=== PATIENT | male | born 1970 | race Caucasian/White ===

== ENCOUNTER 2017-04-15 09:11 | Emergency (ER) | payer BC ==
[2017-04-15 09:31] VITALS: BP 122/78
--- NOTE | 2017-04-15 10:31 | UC ---
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 states he has felt hot, but has not taken his temperature. " Denies fever. no wheezing. used albuterol Q 4hrs last wk w/o any relief. no sinus pain. no ST. no relief w/ mucinex OTC. biggest concern is cough and coughing fits. - History of Current Complaint Chief Complaint: UCGeneralIllness Stated Complaint: UPPER RESP. Time Seen by Provider: 04/15/17 09:44 - Allergies/Home Medications Allergies/Adverse Reactions: Allergies Allergy/AdvReac Type Severity Reaction Status Date / Time No Known Allergies Allergy Verified 04/15/17 09:22 Home Medications: Home Medications PARoxetine HCL TAB* [Paxil TAB*] 20 mg PO DAILY 04/15/17 [History Confirmed ] PMH/Surg Hx/FS Hx/Imm Hx Previously Healthy: Yes Psychological History: Anxiety, Depression - Surgical History Surgical History: None - Family History Known Family History: Negative: Respiratory Disease - no asthma FHx - Social History Alcohol Use: Rare Substance Use Type: None Smoking Status (MU): Never Smoked Tobacco - Immunization History Most Recent Influenza Vaccination: has not had this year Review of Systems Constitutional: Negative Skin: Negative Eyes: Negative ENT: Negative Respiratory: Cough Cardiovascular: Negative Gastrointestinal: Negative Genitourinary: Negative Motor: Negative Neurovascular: Negative Musculoskeletal: Negative Neurological: Negative Psychological: Negative Is Patient Immunocompromised?: No All Other Systems Reviewed And Are Negative: Yes Physical Exam Triage Information Reviewed: Yes Appearance: Well-Appearing, No Pain Distress Vital Signs: Initial Vital Signs Temp 98.0 F 04/15/17 09:17 Pulse 66 04/15/17 09:17 Resp 18 04/15/17 09:17 BP 122/78 04/15/17 09:17 Pulse Ox 99 04/15/17 09:17 Vital Signs Reviewed: Yes Eye Exam: Normal Eyes: Positive: Conjunctiva Clear ENT: Positive: Pharyngeal erythema - +PND, Nasal congestion, TMs normal. Negative: Hoarse voice, Sinus tenderness Neck exam: Normal Neck: Positive: Supple, Nontender, No Lymphadenopathy Respiratory: Positive: Lungs clear, No accessory muscle use, Decreased breath sounds. Negative: Crackles, Rhonchi, Stridor, Wheezing Cardiovascular Exam: Normal Cardiovascular: Positive: RRR, No Murmur Abdomen Description: Positive: Nontender, Soft Musculoskeletal Exam: Normal Neurological Exam: Normal Psychological Exam: Normal Skin Exam: Normal UC Diagnostic Evaluation - Laboratory O2 Sat by Pulse Oximetry: 99 Respiratory Course/Dx - Course Course Of Treatment: no relief with albuterol. -disc prednisone and he is agreeable. disc SEs in detail. cont w/ alb. tessalon helio. -no evidence of bacterial infection at this time. - Differential Dx/Diagnosis Differential Diagnosis/HQI/PQRI: Asthma, Bronchitis, Lower Resp Infection, Sinusitis Provider Diagnoses: Bronchitis Discharge - Discharge Plan Condition: Stable Disposition: HOME Prescriptions: Benzonatate CAP* [Tessalon 100 MG CAP*] 100 mg PO TID PRN #30 cap PRN Reason: Cough Methylprednisolone [Medrol Dosepak 4 MG*] 4 mg PO DAILY #1 devonte Patient Education Materials: Acute Bronchitis (ED) Referrals: Dragan Sandoval MD [Primary Care Provider] - 5 Days Additional Instructions: -We discussed risks of prednisone including but not limited to anxiety, agitation, insomnia, GI upset, elevated blood pressures and blood sugar readings , adrenal crisis and avascular necrosis of the hip. -You should continue using the albuterol. -There is no evidence of any bacterial infection at this time, but you should certainly be re-evaluated if your symptoms worsen or persist.
--- OUTSIDE RECORDS SUMMARY | 2017-04-17 10:02 | XMS REPORT ---
:1970 External Reference #:[id number] Author Organization [facility] Address [address] [address] Phone [phone] Care Team Providers Name Role Phone Dragan Sandoval MD Care Team Information Wood Miller Unavailable Payers Type Date Identification Numbers Payment Provider Subscriber Commercial Effective: Policy Number: [id number] [facility] Commercial Monday Antony 2013 PayID: [id number] [address] [address] [place] [address] Problems Date Description Provider Status Onset: 05/27/2013 History of malignant neoplasm of Dragan Sandoval MD Active skin Onset: 05/02/2012 Migraine with typical aura Dragan Sandoval MD Active Onset: 09/04/2009 Carcinoma in situ of skin of face Dragan Sandoval MD Active Onset: 09/04/2009 Disorder of lipid metabolism Dragan Sandoval MD Active Onset: 09/04/2009 Obesity Dragan Sandoval MD Active Onset: 03/04/2009 Mild recurrent major depression Dragan Sandoval MD Active Onset: 10/08/2008 Hematuria syndrome Cheryl Cantrell PA Active Onset: 04/26/2005 Anxiety state Active Onset: 03/30/2015 Moderate recurrent major depression Dragan Sandoval MD Active Family History Date Family Member(s) Problem(s) Comments General IN General Hypertension Social History Type Date Description Comments Education Higest level completed, Bachelor's Patient is . Lives with Degree son and daughter. 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 Patient is right-handed. Hobbies Golfing Hobbies Bowling Hobbies Hunting ETOH Use Occasionally consumes alcohol Always uses a car seat. Smoking Patient has never smoked Allergies, Adverse Reactions, Alerts Date Description Reaction Status Severity Comments 01/12/2015 NKDA active Medications Medication Date Status Form Strength Qnty SIG Indications Ordering Provider Proair HFA Active Aerosol 108(90Base) 8.500gm 2 puffs R05 Saxena , 017 mcg/Act every 4-6 Jose, hours as DO needed for cough, sob, wheezing Paroxetine Active Tablets 40mg 90tabs take 1 F33.0 Digiovanna HCL 015 tablet at , Dragan, bedtime F33.1 Clonazepam 12/06/2011 Active Tablets 0.5mg 20tabs 1 by mouth F41.9 Digiovanna, twice a MD Dragan day as needed anxiety Omeprazole 01/12/2015 - Hx Capsules 20mg 30caps 1 by mouth K21.9 Digiovanna, 09/08/2015 DR tima Archibald MD morming Paroxetine 01/11/2010 - Hx Tablets 20mg 90tabs 1 by mouth F33.0 Digiovanna, HCL 03/30/2015 tima Archibald MD night at bedtime, or as directed F33.1 Immunizations CPT Code Status Date Vaccine Lot # [id number] Given 03/29/2010 Afluria Or Fluvirin Flu Vac Intramuscular 00428 Given 03/24/2003 Afluria Or Fluvirin Flu Vac Intramuscular Vital Signs Date Vital Result Comment 04/06/2017 Body Temperature 96.6 F Weight 235.00 lb Heart Rate 76 /min BP Systolic 122 mmHg BP Diastolic 76 mmHg Respiratory Rate 18 /min Height 70 inches 5'10"04/06/17 BMI (Body Mass Index) 33.7 kg/m2 09/01/2016 Weight 238.00 lb Heart Rate 74 /min BP Systolic 120 mmHg BP Diastolic 70 mmHg Respiratory Rate 18 /min Height 70 inches 5'10" BMI (Body Mass Index) 34.1 kg/m2 01/11/2016 Weight 233.00 lb Heart Rate 74 /min BP Systolic 120 mmHg BP Diastolic 80 mmHg Respiratory Rate 18 /min Height 70 inches 5'10" BMI (Body Mass Index) 33.4 kg/m2 09/08/2015 Weight 228.00 lb Heart Rate 74 /min BP Systolic 120 mmHg BP Diastolic 80 mmHg Respiratory Rate 18 /min Height 70 inches 5'10" BMI (Body Mass Index) 32.7 kg/m2 04/27/2015 Weight 220.00 lb Heart Rate 74 /min BP Systolic 130 mmHg BP Diastolic 72 mmHg Respiratory Rate 18 /min 03/30/2015 Weight 220.25 lb Heart Rate 72 /min BP Systolic 122 mmHg BP Diastolic 80 mmHg Respiratory Rate 18 /min 01/12/2015 Weight 213.00 lb Heart Rate 64 /min BP Systolic 128 mmHg L/Reg BP Diastolic 78 mmHg L/Reg Respiratory Rate 17 /min Height 70 inches 5'10" BMI (Body Mass Index) 30.6 kg/m2 04/22/2014 BP Systolic 118 mmHg L at rest BP Diastolic 74 mmHg L at rest 04/22/2014 Weight 209.00 lb Down 20# Heart Rate 68 /min BP Systolic 134 mmHg L/Reg BP Diastolic 78 mmHg L/Reg Height 70.1 inches 5'10.10" 6-201310/21/2013 Weight 229.00 lb Same Heart Rate 74 /min BP Systolic 118 mmHg L/Reg BP Diastolic 78 mmHg L/Reg Respiratory Rate 17 /min Height 70.1 inches 5'10.10" 05/27/2013 Weight 229.00 lb Heart Rate 82 /min BP Systolic 122 mmHg L/LG BP Diastolic 76 mmHg L/LG Respiratory Rate 19 /min Height 70.1 inches 5'10.10" 09/21/2012 Weight 231.00 lb up 1# Heart Rate 74 /min BP Systolic 122 mmHg L/LG BP Diastolic 86 mmHg L/LG Respiratory Rate 17 /min Height 70 inches 5'10" 05/02/2012 Weight 230.56 lb Heart Rate 66 /min BP Systolic 112 mmHg BP Diastolic 80 mmHg Respiratory Rate 18 /min 12/06/2011 Weight 216.00 lb Heart Rate 88 /min BP Systolic 116 mmHg BP Diastolic 80 mmHg Respiratory Rate 16 /min Height 70 inches 5'10" 8-201109/30/2011 Weight 219.00 lb Heart Rate 74 /min BP Systolic 126 mmHg BP Diastolic 76 mmHg Respiratory Rate 18 /min Height 70 inches 5'10" 5-201003/16/2011 Weight 215.00 lb Up 7# Heart Rate 74 /min BP Systolic 118 mmHg L/LG BP Diastolic 78 mmHg L/LG Respiratory Rate 17 /min Height 70 inches 5'10" 09/10/2010 Weight 208.31 lb Down 14# Heart Rate 64 /min BP Systolic 132 mmHg L/LG BP Diastolic 78 mmHg L/LG Respiratory Rate 17 /min Height 70 inches 5'10" 03/29/2010 Weight 222.00 lb Heart Rate 80 /min BP Systolic 116 mmHg BP Diastolic 80 mmHg 09/04/2009 Weight 242.00 lb Up 14# Heart Rate 80 /min BP Systolic 114 mmHg L/LG BP Diastolic 78 mmHg L/LG Respiratory Rate 12 /min 03/04/2009 Weight 228.00 lb Down 4# Heart Rate 64 /min BP Systolic 114 mmHg L/LG BP Diastolic 82 mmHg L/LG Respiratory Rate 11 /min 09/09/2008 Weight 232.00 lb Heart Rate 84 /min BP Systolic 134 mmHg BP Diastolic 84 mmHg 08/19/2008 Body Temperature 97.3 F Weight 234.00 lb Heart Rate 80 /min BP Systolic 112 mmHg BP Diastolic 78 mmHg Respiratory Rate 15 /min O2 % BldC Oximetry 98 % 07/08/2008 Body Temperature 96.3 F Weight 231.00 lb Heart Rate 75 /min BP Systolic 112 mmHg BP Diastolic 80 mmHg Respiratory Rate 15 /min 01/02/2008 Body Temperature 97.4 F Weight 223.00 lb Heart Rate 67 /min BP Systolic 134 mmHg BP Diastolic 92 mmHg Respiratory Rate 17 /min Height 70 inches 5'10" 07/03/2007 Body Temperature 97.5 F Weight 226.00 lb Heart Rate 70 /min BP Systolic 124 mmHg BP Diastolic 80 mmHg Respiratory Rate 18 /min Height 70 inches 5'10" 06/23/2007 Weight 229.00 lb Heart Rate 76 /min BP Systolic 122 mmHg BP Diastolic 84 mmHg Respiratory Rate 18 /min Height 70 inches 5'10" O2 % BldC Oximetry 97 % 02/16/2007 Weight 242.00 lb Heart Rate 73 /min BP Systolic 114 mmHg BP Diastolic 78 mmHg Respiratory Rate 17 /min Height 70 inches 5'10" 01/27/2006 Body Temperature 97.1 F Weight 236.56 lb Down 3# Heart Rate 74 /min BP Systolic 118 mmHg L/LG BP Diastolic 76 mmHg L/LG Respiratory Rate 16 /min Height 70 inches 5'10" 01/03/2006 Body Temperature 97.3 F Weight 239.00 lb Heart Rate 84 /min BP Systolic 104 mmHg BP Diastolic 76 mmHg Respiratory Rate 16 /min 04/26/2005 Body Temperature 97.0 F Weight 245.00 lb Heart Rate 76 /min BP Systolic 114 mmHg BP Diastolic 74 mmHg Respiratory Rate 14 /min Results Test Date Test Result H/L Range Note Laboratory test finding 09/01/2016 Cholesterol 156 mg/dL 50-199 HDL 35 mg/dL 29-71 1 TSH 4.88 uIU/mL 0.35-4.94 Basic (BMP) 09/01/2016 Sodium 143 mmol/L 135-146 2 Potassium 4.2 mmol/L 3.5-5.2 Chloride# 109 mmol/L 97-110 3 Carbon Dioxide 27 mmol/L 24-34 Glucose 89 mg/dL 70-105 BUN 15 mg/dL 6-26 Creatinine 0.8 mg/dL 0.5-1.4 Calcium 9.0 mg/dL 8.5-10.2 Non Rebecca Egfr >60 >60 4 Rebecca Egfr >60 >60 5 Anion Gap 11 mmol/L 7-16 6 Occult Blood,Stool 09/05/2015 Stool Occult Blood-Single Spec NEGATIVE Negative Smear For WBC'S 09/05/2015 Smear For WBC'S NONE SEEN Smear Source: STOOL Urinalysis With Microscopic 09/05/2015 Urine Color YELLOW Yellow Urine Clarity CLEAR Clear Urine Glucose - Dipstick NEGATIVE mg/dL Negative Urine Bilirubin - Dipstick SMALL High Negative Urine Ketone TRACE mg/dL High Negative Urine Specific [place] >=1.030 1.010-1.030 Urine Blood SMALL High Negative Urine PH 5.5 Low 6.5-7.5 Urine Protein - Dipstick 100 mg/dL High Negative Urine Urobilinogen - Dipstick 0.2 E.U./dL 0.2-1.0 Urine Nitrite - Dipstick NEGATIVE Negative Urine Leuk Esterase NEGATIVE Negative Urine RBC 2-5 rbc/hpf 0-2 Urine WBC 0-2 wbc/hpf 0-7 Urine Epithelial Cells VERY FEW NONESEEN/lpf Urine Bacteria FEW NONESEEN Urine Mucus MODERATE NONESEEN Urine Screen 09/05/2015 Ua RFX Micro + Culture II See Note 7 Stool Culture 09/05/2015 Stool Culture See Note 8 Shiga Toxin 1 Antigen See Note 9 Shiga Toxin 2 Antigen See Note 10 O&P Exam 09/05/2015 Cryptosporidium Specific Ag See Note 11 Giardia Specific Antigen See Note 12 Comprehensive Metabolic Panel 09/05/2015 Glucose 105 mg/dL 74-106 BUN 13 mg/dL 7-18 Creatinine 0.9 mg/dL 0.6-1.3 Glom Filtration Rate, Estimate >60 mL/min >60 If >60 mL/min >60 13 BUN/Creat 14.4 ratio Sodium 141 mmol/L 136-145 Potassium 3.7 mmol/L 3.5-5.1 Chloride 110 mmol/L High 98-107 Carbon Dioxide 22 mmol/L 21-32 Anion Gap 9 mEq/L 8-16 Calcium 8.3 mg/dL Low 8.5-10.1 Total Protein 7.6 g/dL 6.4-8.2 Albumin 3.4 g/dL 3.4-5.0 Globulin 4.2 g/dL 1.9-4.3 Alb/Glob 0.8 ratio Bilirubin,Total 0.5 mg/dL 0.2-1.0 Sgot/Ast 23 U/L 15-37 SGPT/Alt 59 U/L 12-78 Alkaline Phosphatase 123 U/L High 45-117 Laboratory test finding 09/05/2015 Lipase 122 U/L 73-393 CBC W/Automated Diff 09/05/2015 White Blood Count 5.8 K/uL 3.4-10.5 Red Blood Count 5.17 M/uL 4.20-5.80 Hemoglobin 15.9 gm/dL 12.8-17.0 Hematocrit 45.9 % 38.0-48.0 Mean Cell Volume 88.8 fl 80.0-96.0 Mean Corpuscular HGB 30.8 pg 27.0-33.0 Mean Corpuscular HGB Conc 34.6 g/dL 31.7-36.0 Platelet Count 296 K/uL 150-400 Red Cell Distri Width SD 42.4 fl 36-51 Red Cell Distri Width %CV 13.2 % 11.6-15.8 Mean Platelet Volume 9.5 fL 6.6-10.6 Neut% 61.7 % 33.0-73.0 Lymph % 21.0 % 17.0-56.0 [place] % 14.3 % High 0.0-10.0 Eo% 1.4 % 0.0-5.0 Bas% 1.6 % High 0.1-1.0 Neut# 3.58 K/uL 1.8-7.0 Lymph # 1.22 K/uL Low 1.8-7.0 [place] # 0.83 K/uL High 0.0-0.8 Eos # 0.08 K/uL 0.0-0.5 Baso # 0.09 K/uL Low 0.1-0.2 Laboratory test finding 04/22/2014 Anion Gap 8 mEq/L 8-16 BUN 16 mg/dL 7-18 BUN/Creat 14.5 ratio Calcium 8.4 mg/dL Low 8.5-10.1 Carbon Dioxide 30 mmol/L 21-32 Chloride 109 mmol/L High 98-107 Creatinine 1.1 mg/dL 0.6-1.3 Glom Filtration Rate, Estimate >60 mL/min >60 Glucose 89 mg/dL 74-106 If >60 mL/min >60 14 Potassium 4.2 mmol/L 3.5-5.1 SGPT/Alt 46 U/L 12-78 15 Sgot/Ast 25 U/L 15-37 16 Sodium 143 mmol/L 136-145 LDL Cholesterol Profile 04/22/2014 Cholesterol 136 mg/dL < 200 17 HDL Cholesterol 32 mg/dL > 40 18 LDL-Cholesterol 95 mg/dL < 100 19 Triglycerides 47 mg/dL < 150 20 Laboratory test finding 10/21/2013 Comment See Note . 21 TSH 3.03 uIU/ml 0.50-6.00 Testosterone,Serum 518 ng/dL 348-1197 22 Lipid Panel 10/21/2013 Chol/HDL Ratio 5.3 ratio Cholesterol 155.0 mg/dL 50.0-199.0 HDL 29.0 mg/dL 29.0-67.0 LDL, Calculated 111.8 mg/dL 20.0-129.0 Triglycerides 71.0 mg/dL 30.0-249.0 vLDL 14.2 ng/dL Lipid Panel 05/27/2013 Chol/HDL Ratio 4.7 ratio Cholesterol 147.0 mg/dL 50.0-199.0 HDL 31.0 mg/dL 29.0-67.0 LDL, Calculated 99.0 mg/dL 20.0-129.0 Triglycerides 85.0 mg/dL 30.0-249.0 vLDL 17.0 ng/dL 1 Per NCEP ATP III Guidelines: Results lower than 40 mg/dL are suggestive of increased risk for coronary artery disease. Results > or=to 60 mg/dL are considered a negative risk factor. 2 Updated reference range on new analyzer 3 Updated reference range on new analyzer 4 Concerning GFR Guidelines: Normal function or mild renal disease, if clinically at risk: >/=60 mL/min Moderately decreased: 30-59 Severely decreased: 15-29 Renal failure: <15 Glomerular Filtration Rate (GFR) is estimated based on the MDRD equation, which assumes a steady state for creatinine as recommended by the National Kidney Disease Education Program in conjunction with the National Institutes of Health and the National Kidney Foundation. Clinical conditions in which it may be necessary to measure GFR by using clearance methods include extremes of age and body size, severe malnutrition or obesity, diseases of skeletal muscle, paraplegia or quadriplegia, vegetarian diet, rapidly changing kidney function, and calculation of the dose of potentially toxic drugs that are excreted by the kidneys. 5 Concerning GFR Guidelines for Americans: Normal function or mild renal disease, if clinically at risk: >/=60 mL/min Moderately decreased: 30-59 Severely decreased: 15-29 Renal failure: <15 6 Updated reference range on new analyzer 7 09/05/15 [email or web address] Deleted by [facility] Organism 1 ! NO ENTERIC PATHOGENS ISOLATED . ! ................................................... NOTE: ! INCLUDES TESTING FOR SALMONELLA, SHIGELLA, AEROMONAS, . ! PLESIOMONAS, CAMPYLOBACTER, AND E. COLI 0157:H7 . ! ................................................... . ! YERSINIA AND VIBRIO ARE NOT ROUTINELY SCREENED FOR AND . ! SHOULD BE REQUESTED SEPARATELY 9 SHIGA TOXIN 1 NOT DETECTED 10 SHIGA TOXIN 2 NOT DETECTED 11 NEGATIVE FOR CRYPTOSPORIDIUM SPECIFIC ANTIGEN 12 NEGATIVE FOR GIARDIA SPECIFIC ANTIGEN. The specimen will be held for 5 days. Additional testing may be performed upon request if the antigen tests are negative, and the patient is still symptomatic or has traveled to an endemic region. 13 Note: Persistent reduction for 3 months or more in an eGFR <60 mL/min/1.73 m2 defines CKD. Patients with eGFR values >/=60 mL/min/1.73 m2 may also have CKD if evidence of persistent proteinuria is present. The original MDRD equation for estimated GFR is not valid for patients less than 18 years of age. Additional information may be found at www.kdoqi.org. 14 Note: Persistent reduction for 3 months or more in an eGFR <60 mL/min/ 1.73 m2 defines CKD. Patients with eGFR values >/=60 mL/min/1.73 m2 may also have CKD if evidence of persistent proteinuria is present. The original MDRD equation for estimated GFR is not valid for patients less than 18 years of age. Additional information may be found at www.kdoqi.org. 15 FASTING 16 FASTING 17 Reference Guidelines*: Desirable: ........... < 200 mg/dL Borderline High: ..... 200-239 mg/dL High: ................ >=240 mg/dL * The National Cholesterol Education Program (NCEP) 18 Reference Guidelines*: Low HDL: ..... < 40 mg/dL Normal: ..... 40-60 mg/ dL Desirable: ... > 60 mg/dL *The National Cholesterol Education Program(NCEP ) 19 Reference Guidelines*: Optimal:........... <100 mg/dL Near Optimal....... 100-129 mg/dL Borderline High.... 130-159 mg/dL High............... 160-189 mg/dL Very High.......... >=190 mg/dL * Source: National Cholesterol Education Program (NCEP) 20 Reference Guidelines*: Normal: ............. < 150 mg/dL Borderline High : .... 150-199 mg/dL High: ............... 200-499 mg/dL Very High: .......... > 500 mg/dL * Source: National Cholesterol Education Program (NCEP) 21 Adult male reference interval is based on a population of lean males up to 40 years old. Performed at: RN - [facility] [address] [id number] Blocking Machine Tender: Francisca Lazo MD, Phone: [phone] 22 FASTING Procedures Description No Information Encounters Type Date Location Provider CPT E/M Dx Office Visit 09/01/2016 9:00a [facility] [place] [address] F41.1 F33.1 E66.9 Z85.828 E78.9 Office Visit 01/11/2016 9:30a [facility] [place] [address] F33.1 Z85.828 E66.9 Office Visit 09/08/2015 9:30a [facility] [place] [address] [id number] A09 F33.1 F41.1 Z85.828 Office Visit 04/27/2015 3:30p [facility] [place] [address] F33.1 Office Visit 03/30/2015 2:00p [facility] [place] [address] F33.1 F41.1 K21.9 Office Visit 01/12/2015 8:00a [facility] [place] [address] 272.9 278.00 296.31 V10.83 346.00 530.81 300.00 Plan of Care 04/06/2017 - Sandy Jara PAR05 CoughNew Medication:Proair HFA 108(90 Base) mcg/ActComments:Suspect viralContinue supportive careCall if symptoms worsen or persistFollow up:Prn
== END 2017-04-15 10:42 | disposition home or self-care (01) ==
LOC: UCCORT 09:11
DX: J40 Bronchitis, not specified as acute or chronic (principal)
CPT/HCPCS: 99202; G0463

== ENCOUNTER 2018-09-04 07:34 | Emergency (ER) | payer BC ==
--- OUTSIDE RECORDS SUMMARY | 2018-09-04 07:49 | XMS REPORT | Continuity of Care Document ---
:1970 External Reference #:[id number] Author Name Macy Sandoval, SHAHAB Address [address] [place] [address] Care Team Providers Name Role Phone Dragan Sandoval MD Care Team Information [employer] Farm[employer] Unavailable Payers Date Identification Numbers Payment Provider Subscriber Effective: 2013 Policy Number: [id number] [facility] Commercial Monday Antony PayID: [id number] [address] [address] [place] [address] Advance Directives Description No Information Available Problems Active Problems Provider Date History of malignant neoplasm of skin Dragan Sandoval MD Onset: 2013 Migraine with typical aura Dragan Sandoval MD Onset: 05/02/2012 Carcinoma in situ of skin of face Dragan Sandoval MD Onset: 09/04/2009 Disorder of lipid metabolism Dragan Sandoval MD Onset: 09/04/2009 Obesity Dragan Sandoval MD Onset: 09/04/2009 Mild recurrent major depression Dragan Sandoval MD Onset: 03/04/2009 Hematuria syndrome Cheryl Cantrell PA Onset: 10/08/2008 Anxiety state Onset: 04/26/2005 Moderate recurrent major depression Dragan Sandoval MD Onset: 03/30/2015 Family History Date Family Member(s) Observation Comments General OK General Hypertension Social History Type Date Description Comments Sex Unknown Education Higest level completed, Patient is . Bachelor's Degree Lives with son and daughter. 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 Patient is right-handed. Hobbies [employer] Hobbies Neofonieling Hobbies Hunting ETOH Use Occasionally consumes Always uses a car seat. alcohol Tobacco Use Start: Unknown Patient has never smoked Smoking Status Reviewed: 08/20/18 Patient has never smoked Allergies, Adverse Reactions, Alerts Description No Known Drug Allergies Medications Active Medications SIG Qnty Indications Ordering Date Provider Cyclobenzaprine HCL take 1 tablet by 30tabs S39.012A Digiovanna, 2018 10mg mouth every 8 Macy, FISH CHECKER Tablets hours as needed for pain Ketoconazole apply twice a 15gm R21 Digiovanna, 07/21/2017 2% Cream day to rash as MD Dragan directed Paroxetine HCL take 1 tablet at 90tabs F33.0 Eulalioiovancaio, 03/30/2015 40mg Tablets bedtime MD Dragan F33.1 Clonazepam 1 by mouth twice a 20tabs F41.9 Dragan Sandoval, 12/06/2011 0.5mg day as needed Tablets anxiety F41.1 Ibuprofen 1-2 by mouth every 6 hours Unknown 200mg Tablets with food or snack as needed pain History Medications Levofloxacin 1 by mouth every 7tabs R05 Eulalioiopal, 04/28/2017 - 500mg day for 7 days MD Dragan 05/05/2017 Tablets Prednisone 1 pill by mouth 10tabs R05 Digiopal, 04/28/2017 - 20mg twice a day with MD Dragan 05/03/2017 Tablets food for 5 days Azithromycin 2 tablets by 6tabs R0Jose Alexander, DO 04/26/2017 - 250mg mouth on day 1 04/28/2017 Tablets then 1 tablet on days 2-5 Guaifenesin-Codeine 10ml by mouth q4 480ml Jose العراقي, DO 2016 - hours as needed 05/02/2017 100-10mg/5ML Syrup for cough Proair HFA 2 puffs every 8.500gm Jose العراقي, DO 04/06/2017 - 4-6 hours as 07/21/2017 108(90Base) mcg/Act needed for Aerosol cough, sob, wheezing Omeprazole 1 by mouth every 30caps K21.9 Digiovancaio, 01/12/2015 - 20mg linda Archibald MD 09/08/2015 Capsules Paroxetine HCL 1 by mouth every 90tabs F33.0 Digiovanna, 01/11/2010 - 20mg night at MD Dragan 03/30/2015 Tablets bedtime, or as directed F33.1 Immunizations CPT Code Status Date Vaccine Reaction Lot # [id number] Given 02/23/2018 Flu Vaccine NOS Pt says he got a flu shot in Jan 2018 at work. 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 Given 07/21/2017 Tetanus And Diptheria [id number] Toxoids For Adult Use-preservative free 54876 Given 03/29/2010 Afluria Or Fluvirin Flu Vac Intramuscular 80485 Given 03/24/2003 Afluria Or Fluvirin Flu Vac Intramuscular Vital Signs Date Vital Result Comment 08/20/2018 10:36am Weight 233.44 lb Heart Rate 80 /min BP Systolic 114 mmHg BP Diastolic 74 mmHg Respiratory Rate 16 /min Height 70.5 inches 5'10.50" BMI (Body Mass Index) 33.0 kg/m2 07/27/2018 8:04am Weight 232.00 lb Heart Rate 72 /min BP Systolic 112 mmHg BP Diastolic 78 mmHg Respiratory Rate 18 /min Height 70.5 inches 5'10.50" BMI (Body Mass Index) 32.8 kg/m2 01/26/2018 7:59am Weight 234.25 lb Heart Rate 70 /min BP Systolic 130 mmHg BP Diastolic 78 mmHg Respiratory Rate 18 /min Height 70.5 inches 5'10.50" BMI (Body Mass Index) 33.1 kg/m2 07/21/2017 7:56am Weight 234.00 lb Heart Rate 78 /min BP Systolic 120 mmHg BP Diastolic 70 mmHg Respiratory Rate 18 /min Height 70 inches 5'10" BMI (Body Mass Index) 33.6 kg/m2 04/28/2017 4:25pm Body Temperature 98.2 F Weight 235.00 lb Heart Rate 84 /min BP Systolic 122 mmHg BP Diastolic 80 mmHg Respiratory Rate 18 /min Height 70 inches 5'10"04/06/17 O2 % BldC Oximetry 97 % Ra BMI (Body Mass Index) 33.7 kg/m2 04/26/2017 2:06pm Body Temperature 99.1 F Weight 239.00 lb Heart Rate 96 /min BP Systolic 132 mmHg BP Diastolic 80 mmHg Respiratory Rate 20 /min Height 70 inches 5'10"04/06/17 O2 % BldC Oximetry 9495 % BMI (Body Mass Index) 34.3 kg/m2 04/06/2017 1:51pm Body Temperature 96.6 F Weight 235.00 lb Heart Rate 76 /min BP Systolic 122 mmHg BP Diastolic 76 mmHg Respiratory Rate 18 /min Height 70 inches 5'10"04/06/17 BMI (Body Mass Index) 33.7 kg/m2 09/01/2016 8:51am Weight 238.00 lb Heart Rate 74 /min BP Systolic 120 mmHg BP Diastolic 70 mmHg Respiratory Rate 18 /min Height 70 inches 5'10" BMI (Body Mass Index) 34.1 kg/m2 01/11/2016 9:31am Weight 233.00 lb Heart Rate 74 /min BP Systolic 120 mmHg BP Diastolic 80 mmHg Respiratory Rate 18 /min Height 70 inches 5'10" BMI (Body Mass Index) 33.4 kg/m2 09/08/2015 9:08am Weight 228.00 lb Heart Rate 74 /min BP Systolic 120 mmHg BP Diastolic 80 mmHg Respiratory Rate 18 /min Height 70 inches 5'10" BMI (Body Mass Index) 32.7 kg/m2 04/27/2015 3:47pm Weight 220.00 lb Heart Rate 74 /min BP Systolic 130 mmHg BP Diastolic 72 mmHg Respiratory Rate 18 /min 03/30/2015 2:04pm Weight 220.25 lb Heart Rate 72 /min BP Systolic 122 mmHg BP Diastolic 80 mmHg Respiratory Rate 18 /min 01/12/2015 8:06am Weight 213.00 lb Heart Rate 64 /min BP Systolic 128 mmHg L/Reg BP Diastolic 78 mmHg L/Reg Respiratory Rate 17 /min Height 70 inches 5'10" BMI (Body Mass Index) 30.6 kg/m2 04/22/2014 8:04am BP Systolic 118 mmHg L at rest BP Diastolic 74 mmHg L at rest 04/22/2014 8:04am Weight 209.00 lb Down 20# Heart Rate 68 /min BP Systolic 134 mmHg L/Reg BP Diastolic 78 mmHg L/Reg Height 70.1 inches 5'10.10" 10/21/2013 8:01am Weight 229.00 lb Same Heart Rate 74 /min BP Systolic 118 mmHg L/Reg BP Diastolic 78 mmHg L/Reg Respiratory Rate 17 /min Height 70.1 inches 5'10.10" 05/27/2013 8:47am Weight 229.00 lb Heart Rate 82 /min BP Systolic 122 mmHg L/LG BP Diastolic 76 mmHg L/LG Respiratory Rate 19 /min Height 70.1 inches 5'10.10" 09/21/2012 9:30am Weight 231.00 lb up 1# Heart Rate 74 /min BP Systolic 122 mmHg L/LG BP Diastolic 86 mmHg L/LG Respiratory Rate 17 /min Height 70 inches 5'10" 05/02/2012 2:01pm Weight 230.56 lb Heart Rate 66 /min BP Systolic 112 mmHg BP Diastolic 80 mmHg Respiratory Rate 18 /min 12/06/2011 2:57pm Weight 216.00 lb Heart Rate 88 /min BP Systolic 116 mmHg BP Diastolic 80 mmHg Respiratory Rate 16 /min Height 70 inches 5'10" 09/30/2011 8:50am Weight 219.00 lb Heart Rate 74 /min BP Systolic 126 mmHg BP Diastolic 76 mmHg Respiratory Rate 18 /min Height 70 inches 5'10" 03/16/2011 8:07am Weight 215.00 lb Up 7# Heart Rate 74 /min BP Systolic 118 mmHg L/LG BP Diastolic 78 mmHg L/LG Respiratory Rate 17 /min Height 70 inches 5'10" 09/10/2010 8:14am Weight 208.31 lb Down 14# Heart Rate 64 /min BP Systolic 132 mmHg L/LG BP Diastolic 78 mmHg L/LG Respiratory Rate 17 /min Height 70 inches 5'10" 03/29/2010 2:34pm Weight 222.00 lb Heart Rate 80 /min BP Systolic 116 mmHg BP Diastolic 80 mmHg 09/04/2009 8:17am Weight 242.00 lb Up 14# Heart Rate 80 /min BP Systolic 114 mmHg L/LG BP Diastolic 78 mmHg L/LG Respiratory Rate 12 /min 03/04/2009 8:00am Weight 228.00 lb Down 4# Heart Rate 64 /min BP Systolic 114 mmHg L/LG BP Diastolic 82 mmHg L/LG Respiratory Rate 11 /min 09/09/2008 8:39am Weight 232.00 lb Heart Rate 84 /min BP Systolic 134 mmHg BP Diastolic 84 mmHg 08/19/2008 9:37am Body Temperature 97.3 F Weight 234.00 lb Heart Rate 80 /min BP Systolic 112 mmHg BP Diastolic 78 mmHg Respiratory Rate 15 /min O2 % BldC Oximetry 98 % 07/08/2008 10:07am Body Temperature 96.3 F Weight 231.00 lb Heart Rate 75 /min BP Systolic 112 mmHg BP Diastolic 80 mmHg Respiratory Rate 15 /min 01/02/2008 11:06am Body Temperature 97.4 F Weight 223.00 lb Heart Rate 67 /min BP Systolic 134 mmHg BP Diastolic 92 mmHg Respiratory Rate 17 /min Height 70 inches 5'10" 07/03/2007 1:33pm Body Temperature 97.5 F Weight 226.00 lb Heart Rate 70 /min BP Systolic 124 mmHg BP Diastolic 80 mmHg Respiratory Rate 18 /min Height 70 inches 5'10" 06/23/2007 9:27am Weight 229.00 lb Heart Rate 76 /min BP Systolic 122 mmHg BP Diastolic 84 mmHg Respiratory Rate 18 /min Height 70 inches 5'10" O2 % BldC Oximetry 97 % 02/16/2007 3:37pm Weight 242.00 lb Heart Rate 73 /min BP Systolic 114 mmHg BP Diastolic 78 mmHg Respiratory Rate 17 /min Height 70 inches 5'10" 01/27/2006 8:21am Body Temperature 97.1 F Weight 236.56 lb Down 3# Heart Rate 74 /min BP Systolic 118 mmHg L/LG BP Diastolic 76 mmHg L/LG Respiratory Rate 16 /min Height 70 inches 5'10" 01/03/2006 11:12am Body Temperature 97.3 F Weight 239.00 lb Heart Rate 84 /min BP Systolic 104 mmHg BP Diastolic 76 mmHg Respiratory Rate 16 /min 04/26/2005 1:57pm Body Temperature 97.0 F Weight 245.00 lb Heart Rate 76 /min BP Systolic 114 mmHg BP Diastolic 74 mmHg Respiratory Rate 14 /min Results Test Date Facility Test Result H/L Range Note Basic (BMP) 01/26/2018 [facility] Sodium 142 mmol/L 135-146 1 Potassium 4.3 mmol/L 3.5-5.2 Chloride# 109 mmol/L 97-110 2 Carbon Dioxide 24 mmol/L 24-34 Glucose 92 mg/dL 70-105 BUN 15 mg/dL 6-26 Creatinine 1.0 mg/dL 0.5-1.4 Calcium 8.9 mg/dL 8.5-10.2 Non Rebecca Egfr >60 >60 3 Rebecca Egfr >60 >60 4 Anion Gap 9 mmol/L 5-15 5 Laboratory test finding 01/26/2018 [facility] TSH 4.72 uIU/mL 0.35-4.94 Lipid 01/26/2018 [facility] Cholesterol 145 mg/dL 50-199 Triglycerides 70 mg/dL 30-200 HDL 30 mg/dL - 6 Chol/ HDL Ratio 4.8 ratio 4.0-6.7 VLDL 14 mg/dL 2-29 LDL (Calc) 101 mg/dL High 20-99 7 Laboratory test finding 09/01/2016 [facility] Cholesterol 156 mg/dL 50-199 HDL 35 mg/dL - 8 TSH 4.88 uIU/mL 0.35-4.94 Basic (BMP) 09/01/2016 [facility] Sodium 143 mmol/L 135-146 9 Potassium 4.2 mmol/L 3.5-5.2 Chloride# 109 mmol/L 97-110 10 Carbon Dioxide 27 mmol/L 24-34 Glucose 89 mg/dL 70-105 BUN 15 mg/dL 6-26 Creatinine 0.8 mg/dL 0.5-1.4 Calcium 9.0 mg/dL 8.5-10.2 Non Rebecca Egfr >60 >60 11 Rebecca Egfr >60 >60 12 Anion Gap 11 mmol/L 7-16 13 CBC W/Automated Diff 09/05/2015 [facility] White Blood 5.8 K/uL 3.4-10.5 (315)- - Count Red Blood Count 5.17 M/uL 4.20-5.80 Hemoglobin [...] % 33.0-73.0 Lymph % 21.0 % 17.0-56.0 [place] % 14.3 % High 0.0-10.0 Eo% 1.4 % 0.0-5.0 Bas% 1.6 % High 0.1-1.0 Neut# 3.58 K/uL 1.8-7.0 Lymph # 1.22 K/uL Low 1.8-7.0 [place] # 0.83 K/uL High 0.0-0.8 Eos # 0.08 K/uL 0.0-0.5 Baso # 0.09 K/uL Low 0.1-0.2 Laboratory test finding 09/05/2015 [facility] Lipase 122 U/L 73-393 (315)- - Comprehensive Metabolic 09/05/2015 [facility] Glucose 105 mg/dL 74-106 Panel (315)- - BUN 13 mg/dL 7-18 Creatinine 0.9 mg/dL 0.6-1.3 Glom Filtration Rate, Estimate >60 mL/min >60 If >60 mL/min >60 14 BUN/Creat 14.4 ratio Sodium 141 mmol/L 136-145 [...] 12-78 Alkaline Phosphatase 123 U/L High 45-117 O&P Exam 09/05/2015 [facility] Cryptosporidium Specific See Note 15 (315)- - Ag Giardia Specific Antigen See Note 16 Stool Culture 09/05/2015 [facility] Stool Culture See Note 17 (315)- - Shiga Toxin 1 Antigen See Note 18 Shiga Toxin 2 Antigen See Note 19 Urine Screen 09/05/2015 [facility] Ua RFX Micro + See Note 20 (315)- - Culture II Urinalysis With 09/05/2015 [facility] Urine Color YELLOW Yellow Microscopic (315)- - Urine Clarity CLEAR Clear Urine Glucose - Dipstick NEGATIVE mg/dL Negative Urine Bilirubin - Dipstick SMALL High Negative Urine Ketone TRACE mg/dL High Negative Urine Specific Rankin >=1.030 1.010-1.030 Urine Blood SMALL High Negative Urine PH 5.5 Low 6.5-7.5 Urine Protein - Dipstick 100 mg/dL High Negative Urine Urobilinogen - Dipstick 0.2 E.U./dL 0.2-1.0 Urine Nitrite - Dipstick NEGATIVE Negative Urine Leuk Esterase NEGATIVE Negative Urine RBC 2-5 rbc/hpf 0-2 Urine WBC 0-2 wbc/hpf 0-7 Urine Epithelial Cells VERY FEW NONESEEN/lpf Urine Bacteria FEW NONESEEN Urine Mucus MODERATE NONESEEN Smear For WBC'S 09/05/2015 [facility] Smear For WBC'S NONE SEEN (315)- - Smear Source: STOOL Occult 09/05/2015 [facility] Stool Occult NEGATIVE Negative Blood,Stool (315)- - Blood-Single Spec Laboratory test 04/22/2014 [facility] Anion Gap 8 mEq/L 8-16 finding BUN 16 mg/dL 7-18 BUN/Creat 14.5 ratio Calcium 8.4 mg/dL Low 8.5-10.1 Carbon Dioxide 30 mmol/L 21-32 Chloride 109 mmol/L High 98-107 Creatinine 1.1 mg/dL 0.6-1.3 Glom Filtration Rate, Estimate >60 mL/min >60 Glucose 89 mg/dL 74-106 If >60 mL/min >60 21 Potassium 4.2 mmol/L 3.5-5.1 SGPT/Alt 46 U/L 12-78 22 Sgot/Ast 25 U/L 15-37 23 Sodium 143 mmol/L 136-145 LDL Cholesterol Profile 04/22/2014 [facility] Cholesterol 136 mg/dL < 200 24 HDL Cholesterol 32 mg/dL > 40 25 LDL-Cholesterol 95 mg/dL < 100 26 Triglycerides 47 mg/dL < 150 27 Laboratory test finding 10/21/2013 [facility] Comment See Note . 28 TSH 3.03 uIU/ml 0.50-6.00 Testosterone,Serum 518 ng/dL 348-1197 29 Lipid Panel 10/21/2013 [facility] Chol/HDL Ratio 5.3 ratio Cholesterol 155.0 mg/dL 50.0-199.0 HDL 29.0 mg/dL 29.0-67.0 LDL, Calculated 111.8 mg/dL 20.0-129.0 Triglycerides 71.0 mg/dL 30.0-249.0 vLDL 14.2 ng/dL Lipid Panel 05/27/2013 [facility] Chol/HDL Ratio 4.7 ratio Cholesterol 147.0 mg/dL 50.0-199.0 HDL 31.0 mg/dL 29.0-67.0 LDL, Calculated 99.0 mg/dL 20.0-129.0 Triglycerides 85.0 mg/dL 30.0-249.0 vLDL 17.0 ng/dL 1 Updated reference range on new analyzer 2 Updated reference range on new analyzer 3 Concerning GFR Guidelines: Normal function or mild [...] drugs that are excreted by the kidneys. 4 Concerning GFR Guidelines for Americans: Normal function or mild renal disease, if clinically at risk: >/=60 mL/min Moderately decreased: 30-59 Severely decreased: 15-29 Renal failure: <15 5 Updated Reference Range 6 Per NCEP ATP III Guidelines: Results lower than 40 mg/dL are suggestive of increased risk for coronary artery disease. Results > or=to 60 mg/dL are considered a negative risk factor. 7 Per NCEP ATP III Guidelines: Normal Population <130 Patients with medical conditions: CHD/DM Optimal: <100 Borderline high: 130-159 High: 160-189 Very high: >189 8 Per NCEP ATP III Guidelines: Results lower than 40 mg/dL are suggestive of increased risk for coronary artery disease. Results > or=to 60 mg/dL are considered a negative risk factor. 9 Updated reference range on new analyzer 10 Updated reference range on new analyzer 11 Concerning GFR Guidelines: Normal function or mild [...] drugs that are excreted by the kidneys. 12 Concerning GFR Guidelines for Americans: Normal function or mild renal disease, if clinically at risk: >/=60 mL/min Moderately decreased: 30-59 Severely decreased: 15-29 Renal failure: <15 13 Updated reference range on new analyzer 14 Note: Persistent reduction for 3 months or more in an eGFR <60 mL/min/1.73 m2 defines CKD. Patients with eGFR values >/=60 mL/min/1.73 m2 may also have CKD if evidence of persistent proteinuria is present. The original MDRD equation for estimated GFR is not valid for patients less than 18 years of age. Additional information may be found at www.kdoqi.org. 15 NEGATIVE FOR CRYPTOSPORIDIUM SPECIFIC ANTIGEN 16 NEGATIVE FOR GIARDIA SPECIFIC ANTIGEN. The specimen will be held for 5 days. Additional testing may be performed upon request if the antigen tests are negative, and the patient is still symptomatic or has traveled to an endemic region. 17 Organism 1 ! NO ENTERIC PATHOGENS ISOLATED . ! ................................................... NOTE: ! INCLUDES TESTING FOR SALMONELLA, SHIGELLA, AEROMONAS, . ! PLESIOMONAS, CAMPYLOBACTER, AND E. COLI 0157:H7 . ! ................................................... . ! YERSINIA AND VIBRIO ARE NOT ROUTINELY SCREENED FOR AND . ! SHOULD BE REQUESTED SEPARATELY 18 SHIGA TOXIN 1 NOT DETECTED 19 SHIGA TOXIN 2 NOT DETECTED 09/05/15 LAB.[email or web address] Deleted by Reflex Group [facility] 21 Note: Persistent reduction for 3 months or more in an eGFR <60 mL/min/1.73 m2 defines CKD. Patients with eGFR values >/=60 mL/min/1.73 m2 may also have CKD if evidence of persistent proteinuria is present. The original MDRD equation for estimated GFR is not valid for patients less than 18 years of age. Additional information may be found at www.kdoqi.org. 22 FASTING 23 FASTING 24 Reference Guidelines*: Desirable: ........... < 200 mg/dL Borderline High: ..... 200-239 mg/dL High: ................ >=240 mg/dL * The National Cholesterol Education Program (NCEP) 25 Reference Guidelines*: Low HDL: ..... < 40 mg/dL Normal: ..... 40-60 mg/dL Desirable: ... > 60 mg/dL *The National Cholesterol Education Program(NCEP) 26 Reference Guidelines*: Optimal:........... <100 mg/dL Near Optimal....... 100-129 mg/dL Borderline High.... 130-159 mg/dL High............... 160-189 mg/dL Very High.......... >=190 mg/dL * Source: National Cholesterol Education Program ( NCEP) 27 Reference Guidelines*: Normal: ............. < 150 mg/dL Borderline High: .... 150-199 mg/dL High: ............... 200-499 mg/dL Very High: .......... > 500 mg/dL * Source: National Cholesterol Education Program (NCEP) 28 Adult male reference interval is based on a population of lean males up to 40 years old. Performed at: [facility] [address] [id number] Storeperson: Francisca Lazo MD, Phone: [phone] FASTING Procedures Date Code Description Status 07/27/2018 82495 Brief Emotional/Behav Assessment W/ Scoring Doc Per Completed Standard Inst 04/28/2017 67196 Measure Blood Oxygen Level Single Determination Completed 04/26/2017 94807 Measure Blood Oxygen Level Single Determination Completed Encounters Type Date Location Provider Dx Diagnosis Office Visit 07/27/2018 [facility] Dragan Sandoval, F33.1 Major depressive 8:00a MD disorder, recurrent, moderate F41.1 Generalized anxiety disorder 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, unspecified Z85.828 Personal history of other malignant neoplasm of skin E66.9 Obesity, unspecified Z68.32 Body mass index (BMI) 32.0-32.9, adult Office Visit 01/26/2018 8:00a Dragan Edmond, J06.9 Acute upper MD respiratory infection, unspecified 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, unspecified F33.1 Major depressive disorder, recurrent, moderate F41.1 Generalized anxiety disorder Z85.828 Personal history of other malignant neoplasm of skin Z68.33 Body mass index (BMI) 33.0-33.9, adult Office Visit 07/21/2017 8:00a Dragan Edmond MD Z23 Encounter for immunization R21 Rash and other nonspecific skin eruption F33.1 Major depressive disorder, recurrent, moderate Office Visit 04/28/2017 4:30p Dragan Edmond, R05 Cough MD Office Visit 04/26/2017 2:00p [facility] Sandy Jara PA R05 Cough Office Visit 04/06/2017 1:45p [facility] Sandy Jara PA R05 Cough Office Visit 09/01/2016 9:00a Dragan Edmond, F41.1 Generalized anxiety MD disorder F33.1 Major depressive disorder, recurrent, moderate E66.9 Obesity, unspecified Z85.828 Personal history of other malignant neoplasm of skin 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, unspecified Office Visit 01/11/2016 9:30a Dragan Edmond MD F33.1 Major depressive disorder, recurrent, moderate Z85.828 Personal history of other malignant neoplasm of skin E66.9 Obesity, unspecified Office Visit 09/08/2015 9:30a Dragan Edmond, S43.492A Other sprain of MD LEFT shoulder joint, initial encounter A09 Infectious gastroenteritis and colitis, unspecified F33.1 Major depressive disorder, recurrent, moderate F41.1 Generalized anxiety disorder Z85.828 Personal history of other malignant neoplasm of skin Office Visit 04/27/2015 3:30p [facility] Dragan Sandoval MD F33.1 Major depressive disorder, recurrent, moderate Office Visit 03/30/2015 2:00p [facility] Dragan Sandoval MD F33.1 Major depressive disorder, recurrent, moderate F41.1 Generalized anxiety disorder K21.9 Gastro-esophageal reflux disease without esophagitis Office Visit 01/12/2015 8:00a [facility] Dragan Sandoval MD 272.9 Lipoid Metabolism Disorders Unspec 278.00 Obesity Unspec 296.31 Depressive Disorder Major Recurrent Mild V10.83 History Personal Malignant Neoplasm Of The Skin Other 346.00 Migraine Classical W/O Intractable 530.81 Esophageal Reflux 300.00 Anxiety State Unspec Plan of Treatment Future Appointment(s):02/01/2019 8:00 am - Dragan Sandoval MD at [facility]2018 - Macy Sandoval, NPS39.012A Strain of muscle, fascia and tendon of lower back, initial eNew Medication:Cyclobenzaprine HCL 10 mg - take 1 tablet by mouth every 8 hours as needed for painComments:Recommend moist heat and analgesic rub for comfort.Recommend restart Cyclobenzaprine with caution for drowsiness.Continue alternating Tylenol and Ibuprofen: Tylenol 1000mg every 6 hours and ibuprofen 800mg(with food) every 6 hours.Follow up:PRN for increased or persistent pain
[2018-09-04 07:53] VITALS: BP 120/74
[2018-09-04] MEDS ORDERED: Lidocaine 2% PF * 5 ML VIAL INJ ONE (08:00)
--- NOTE | 2018-09-04 08:35 | UC ---
Skin Complaint HPI - HPI Summary HPI Summary: sore on left lower leg x 3 days ? tick bite , the area is hard , swelling, tender , no redness, no discharge, no fever , no chill, no body aches, - History of Current Complaint Chief Complaint: [facility] Time Seen by Provider: 09/04/18 07:53 Stated Complaint: SKIN - TICK Hx Obtained From: Patient Onset/Duration: Sudden Onset, Lasting Days - 3, Still Present Timing: Constant Onset Severity: Moderate Current Severity: Moderate Pain Intensity: 0 Pain Scale Used: 0-10 Numeric Location: Other - left lower leg Character: Swelling, Pain, Raised, Painful Aggravating Factor(s): Touch Alleviating Factor(s): Nothing Associated Signs & Symptoms: Positive: Tenderness. Negative: Nausea, Vomiting, Numbness, Fever, Chills, Cough, Throat Tightening, Rash, Drainage, Bruising, Red Streaks - Allergy/Home Medications Allergies/Adverse Reactions: Allergies Allergy/AdvReac Type Severity Reaction Status Date / Time No Known Allergies Allergy Verified 09/04/18 07:49 PMH/Surg Hx/FS Hx/Imm Hx Psychological History: Anxiety - Surgical History Surgical History: None - Family History Known Family History: Negative: Respiratory Disease - no asthma FHx - Social History Alcohol Use: Rare Substance Use Type: None Smoking Status (MU): Never Smoked Tobacco - Immunization History Most Recent Influenza Vaccination: has not had this year Review of Systems All Other Systems Reviewed And Are Negative: Yes Constitutional: Positive: Negative Eyes: Positive: Negative ENT: Positive: Negative Respiratory: Positive: Negative Is Patient Immunocompromised?: No Physical Exam Triage Information Reviewed: Yes Appearance: Well-Appearing, No Pain Distress, Well-Nourished Vital Signs: Initial Vital Signs Temp 97.8 F 09/04/18 07:48 Pulse 64 09/04/18 07:48 Resp 18 09/04/18 07:48 BP 120/74 09/04/18 07:48 Pulse Ox 98 09/04/18 07:48 Vital Signs Reviewed: Yes Eye Exam: Normal Eyes: Positive: Conjunctiva Clear ENT: Positive: Normal ENT inspection, Hearing grossly normal, Pharynx normal Neck: Positive: Supple, Nontender, No Lymphadenopathy Respiratory: Positive: Chest non-tender, Lungs clear, Normal breath sounds Cardiovascular: Positive: RRR, No Murmur, Pulses Normal Abdominal Exam: Normal Skin: Positive: Other - left lower leg / serrano area : + soft tissue foreign body , + swelling, tender to touch , no discharge Procedures - Procedure Summary Procedure Summary: soft tissue foreign body removal from left serrano area the area was prepped with alcohol 2 cc 2% lidocaine was used for anesthesia small incision made with # 11 blade foreign body / small wooden sliver was removed using forceps sterile dressing was applied Course/Dx - Diagnoses Provider Diagnosis: Foreign body of left lower leg Discharge - Sign-Out/Discharge Documenting (check all that apply): Patient Departure All imaging exams completed and their final reports reviewed: No Studies - Discharge Plan Condition: Stable Disposition: HOME Patient Education Materials: Soft Tissue Foreign Body (ED) Referrals: Dragan Sandoval MD [Primary Care Provider] - If Needed - Billing Disposition and Condition Condition: STABLE Disposition: Home
== END 2018-09-04 08:20 | disposition home or self-care (01) ==
LOC: UCCORT 07:34
DX: S80.852A Superficial foreign body, left lower leg, initial encounter (principal); F41.9 Anxiety disorder, unspecified; X58.XXXA Exposure to other specified factors, initial encounter
CPT/HCPCS: 10120; 99211; G0463